=== PATIENT | male | born 1960 | race Caucasian/White ===

== ENCOUNTER → 2016-09-10 | Outpatient (CLI) | payer MEDICARE ==
[~2016-09-10] MED LIST: BACTRIM DS 8001 TAB PO; GABAPENTIN800 MG PO; LISINOPRIL 10MG10 MG PO; LISINOPRIL 20MG20 MG PO; LISINOPRIL1 POW; MEDROL 4MG. DOSE4 MG PO; NORCO 325 MG-101 TAB PO; PERCOCET 325 MG1 TA3 PO; PERCOCET 325 MG1 TA4 PO; VALIUM 10MG TAB10 MG PO
[2016-09-10 15:28] LABS: AMPHETAMINES/METAMPHETAMINES NEGATIVE ng/mL (<1000)
== END ==
LOC: LAB 13:55
PROVIDERS: Emergency Medicine
DX: Z79.899 Other long term (current) drug therapy (principal)

== ENCOUNTER 2016-10-16 06:23 | Day surgery (SDC) | payer MEDICARE ==
[~2016-10-16] VITALS: Ht 182.9 cm; Wt 72.6 kg
--- NOTE | 2016-10-16 12:10 | Operative Note ---
Procedure/Operative Record Date of Procedure: 10/16/16 Referring physician: Dr. Espinosa Pre-op diagnosis: 1. Carpal tunnel syndrome, RIGHT wrist 2. Cubital tunnel syndrome, RIGHT elbow 3. Ulnar nerve subluxation, RIGHT elbow Post-op diagnosis: 1. Carpal tunnel syndrome, RIGHT wrist 2. Cubital tunnel syndrome, RIGHT elbow 3. Ulnar nerve subluxation, RIGHT elbow Procedure performed: 1. Open carpal tunnel release, RIGHT wrist 2. Cubital tunnel release with anterior subcutaneous transposition of the ulnar nerve, RIGHT elbow Surgeon: ANTHONY VARGAS,KAVITA LAGUNAS [employer] Post Truck Driver(s): Chayo Ware Anesthesia: General Indications: Patient is a 56-year-old vvyfe-clwp-blwbyswf gentleman with paresthesias in both hands with weakness and wasting of small muscles in his RIGHT hand for about 1 year duration. Evaluation including EMG/NCV confirmed bilateral carpal tunnel syndrome and ulnar neuropathy on the RIGHT side. He failed to respond satisfactorily to conservative management. Clinically there is significant wasting and weakness of the small muscles of his RIGHT hand over both median and ulnar nerve distribution. There is also anterior subluxation of the ulnar nerve over the medial epicondyle. Therefore the surgery is indicated to preserve the remaining fibers of the median and ulnar nerves, improve his functional outcome and decrease the pain, paresthesias, weakness and to prevent further progression and complete nerve damage. Findings: The intraoperative findings showed the median nerve to be very tightly compressed and slightly hyperemic. There was mild synovitis in the carpal tunnel. There was no space-occupying lesions within the carpal tunnel. At the cubital tunnel, the ulnar nerve was tightly compressed. The nerve appeared thinned out and hyperemic in the cubital tunnel. The medial epicondyle was somewhat prominent but no osteophytes or space-occupying lesions noted. Description of procedure: On the day of the surgery the patient was met in the preoperative area. He was positively identified and the operative site was marked and initialed by me. A physical examination was performed and the chart was updated. Consent form was reviewed and signed. I again discussed the procedures, risks and benefits and alternatives with the patient. We have discussed that the goal of the surgery is to stop further damage to the median and ulnar nerves by relieving pressure on the nerves. We have discussed that return of sensation and nerve function may or may not actually happen. We have discussed nonsurgical alternatives including use of a splint, activity limitations, nonsteroidal anti-inflammatory drugs and local cortisone injections, in detail. We discussed risks of carpal tunnel and cubital tunnel release surgery- these include but are not limited to bleeding, injury to nerves, blood vessels and tendons, infection, wound dehiscence [wound coming apart], incomplete relief/continued pain, persistent numbness, palmar hypersensitivity, pillar pain, worsening of nerve damage, failure of the condition to improve, incomplete return of function, bowstringing of tendons, weakness of ladies suit operator strength, recurrence, failure of the surgery to accomplish the desired goals, stiffness of the wrist and elbow, decreased use of the hand, loss of use of the arm, loss of the hand or arm, loss of life. The possibility of complex regional pain syndrome has been discussed. Need for potential additional surgery in the future has been discussed. Possibility of blood clots causing dangerous or even fatal sequelae have been discussed. I've indicated to the patient where the proposed incisions would be made and also discussed the possibility of extending the incisions if needed to accomplish an effective release. I have diagrammed the peripheral nerve and fascicular bundles and indicated how some nerve fibers may still be healthy, others may be compromised but recoverable, and some may be permanently damaged. We have discussed how the goal of surgery is to protect the fibers which have remained healthy and hopefully reverse the symptoms of the fibers which are compromised but still recoverable. We have explained that, fibers that are permanently damaged will not recover. The patient asked appropriate questions and all have been answered by me. I believe the patient is fully informed as to the goals of surgery, the potential risks and benefits. He expressed a full understanding and wished to proceed with the proposed surgery as planned on the RIGHT side. The patient was brought to the operating room and placed supine on the operating table. The RIGHT arm was placed over a side table. All bony prominences were appropriately padded. The career technical counselor had already administered the appropriate anesthetic (general). A well-padded tourniquet cuff was placed very high on the upper arm. The RIGHT upper extremity was prepped and draped in the usual sterile fashion. A preprocedure timeout was performed as per hospital policy. The bony landmarks including the medial epicondyle and the olecranon process as well as the skin incisions were marked with a marking pen- a curved incision over the medial aspect of the elbow for the ulnar nerve decompression and 2 cm volar incision marked using the Kowalski's landmarks, just ulnar to the thenar crease for the carpal tunnel decompression. The limb was exsanguinated with Esmarch bandage and tourniquet was inflated to 250 mmHg.Please see nursing records for the total tourniquet time. We started first with the cubital tunnel decompression and anterior subcutaneous transposition of ulnar nerve. A preprocedure tmeout was performed as per the Hospital protocol. A curved skin incision was made on the medial aspect of the elbow and carried posterior to the medial epicondyle over the cubital tunnel. Using blunt dissection, branches of the medial brachial, and antebrachial cutaneous nerves were dissected and retracted out of the operative field and protected throughout the procedure. Blunt dissection was carried through the subcu tissue and the ulnar nerve was identified superior to the cubital tunnel. The nerve was first followed superiorly up to the medial intermuscular septum and the septum was released to free up the nerve at this point. The nerve was then followed distally into the cubital tunnel. The nerve was completely freed up of all surrounding soft tissues proximally and into the cubital tunnel. The cubital tunnel was then slowly released. Distally, the ulnar nerve was carefully dissected to identify the branches to the flexor carpi ulnaris muscle and the articular branches. Once these nerve branches were identified, the fascia over the flexor pronator muscle mass was incised to ensure that there was no compression of the nerve in this area. The motor branches of the ulnar nerve were carefully protected throughout this release. With the ulnar nerve freely released from soft tissue, it was brought anteriorly and the elbow was placed through a full range of motion to ensure that there was no constriction of the nerve throughout the course. A Garnett drain was placed over the nerve to hold it in place and to ensure that there is no constriction of the nerve throughout the range of motion, even beyond the plane of the dissection. The elbow was put through full range of motion. No compression points or acute angles were identified. A fascial sling was then fashioned from the fasciae overlying the muscles and sutured to the anterior skin flap, using interrupted 2-0 Vicryl sutures. Again, the elbow was put through full motion and no compression points were identified We then turned our attention to the carpal tunnel release. Kowalski's landmarks were utilized and an incision made parallel and just ulnar to the thenar crease with a #15 blade. Blunt dissection was carried through the subcutaneous tissue down to the palmar fascia. The palmar fascia was incised with the knife to reveal the transverse carpal ligament. The transverse carpal ligament was adequately exposed and then incised with the knife just enough to expose the median nerve. We then protected the median nerve with a freer elevator and extended the incision on the ulnar aspect of the nerve using the knife. We then completed the division of the transverse carpal ligament proximally using a pair of tenotomy scissors. The transverse carpal ligament was contiguous with the antebrachial fascia and skin was lifted up with a retractor, and the antebrachial fascia visualized and incised. A complete release proximally was confirmed by easily obtaining side to side movement of the proximal carpal tunnel segments. Attention was then directed distally. Again, we incised the distal aspect of the transverse carpal ligament using the tenotomy scissors. Fat demarcating the end of the carpal tunnel was identified and we ensured that the motor branch was not endangered by any anatomic variation. We also then confirmed that we had free side to side movement of the entire transverse carpal tunnel ligament segments. Inspection of the carpal tunnel contents showed slight hyperemic changes in the nerve. There was mild synovitis but no space-occupying lesion within the transverse carpal canal. After completing the carpal tunnel release, the tourniquet was deflated and hemostasis was obtained over both the wounds with the bipolar diathermy. We then irrigated both the wounds with normal saline. The wrist wound skin was closed with a running 4-0 nylon suture. 10 mL of 0.5 percent Marcaine injected into the soft tissues around the incision for postoperative analgesia. The wound was closed in layers with 2-0 Vicryl subcutaneous tissue and 4-0 Ethilon interrupted sutures to the skin. 20 mL of 0.5 percent Marcaine injected into the soft tissues and skin around the elbow incision. Sterile dressings and a long-arm Ortho-Glass splint was applied. The tourniquet cuff was removed from the arm. The patient was reversed from the anesthetic and transferred onto the [facility] and transported to the postoperative recovery area in stable condition. The swab, instrument and needle counts were correct according to the scrub team at the end of the procedure. He tolerated the procedure well and there were no immediate complications. Patient was discharged home after fully recovering from the anesthetic with appropriate written instructions. Follow-up in my office in 10 days time. EBL (ml): 20 Implant: None Complications: None Specimens: None
[2016-10-16 12:45] VITALS: BP 144/77
== END 2016-10-16 10:30 | disposition home or self-care (01) ==
LOC: SDC 06:23
PROVIDERS: Orthopaedic Surgery
PROC: 01N50ZZ Release Median Nerve, Open Approach (ICD-10-PCS; principal; 2016-10-16 07:30)
PROC: 01N40ZZ Release Ulnar Nerve, Open Approach (ICD-10-PCS; 2016-10-16 07:30)
DX: G56.01 Carpal tunnel syndrome, right upper limb (principal); G56.21 Lesion of ulnar nerve, right upper limb; S63.071A Subluxation of distal end of right ulna, initial encounter

== ENCOUNTER → 2016-12-19 | Outpatient (CLI) | payer MEDICARE ==
--- NOTE | 2016-12-19 17:05 | RADIOLOGY REPORT PS360 ---
History and Indications: Hypertension, tobacco use, family history and shortness of breath. Procedure: Patient received a 0.4 mg of Lexiscan, resting heart rate was 76 bpm resting blood pressure 136/76, with Lexiscan maximum heart rate achieved was 93 bpm which is less than 85% of the maximum predicted heart rate and a blood pressure was 125/70. With Lexiscan patient complained of shortness of breath. Electrocardiogram: Resting electrocardiogram showed sinus rhythm, rightward axis, with intravenous Lexiscan there is less than 1.[address] segment depression noted from the baseline EKG. The EKG portion of the Lexiscan is nondiagnostic. Cardiac stress and resting SPECT images: Cardiac stress and the suspect images were obtained using technetium 99 Myoview 10.3 mCi at rest and 31.4 mCi at stress, gated SPECT further analysis of segmental wall motion and calculation of the ejection fraction also done. Cardiac stress and the suspect images show a fixed defect in the inferior wall with normal contractility in the gated SPECT is likely secondary to soft tissue attenuation from the diaphragm, no reversible ischemia seen. Computer derived ejection fraction is 46% with no obvious regional wall motion abnormality, right ventricle is moderately enlarged with normal contractility. Conclusion: 1. The EKG portion of the Lexiscan is nondiagnostic. 2. No obvious scintigraphic evidence of reversible ischemia seen. Computer derived ejection fraction is 46% with no obvious regional wall motion abnormality, right ventricle is moderately enlarged with normal contractility.
--- NOTE | 2016-12-19 20:49 | RADIOLOGY REPORT PS360 ---
PROCEDURE: 2-D M-mode and color Doppler study INDICATIONS FOR THE TEST: Chest pain COPD Heart Murmur Tobacco Smoking Palpitations Fatigue Syncope Edema Hypertension Diabetes Mellitus Rheumatic Fever SOB [place] Obesity Hyperlipidemia Family History HD Additional History BUBBLE STUDY ORDERED, CVA PATIENT INFORMATION HEIGHT: 70 WEIGHT:168 GENDER: Male B/P: 2-D/M-MODE INTERPRETATION: 2-D MEASUREMENTS OBSERVED VALUES IN CMS Aortic Root 3.8 Aortic Cusp Separation 2.1 Left Atrial Dimensions (LAD) 4.5 2D 1. The left atrium is mildly enlarged, left ventricle is normal size, there is mild concentric left ventricular hypertrophy present, visually estimated ejection fraction approximately 50% with no obvious regional wall motion abnormality, endocardial surfaces are somewhat poorly visualized. 2. The right atrium is normal size, right ventricle is mildly enlarged with normal contractility. 3. The intra-atrial septum is intact, agitated saline contrast study is to identify intracardiac shunt. 4. The aortic valve is minimally thickened and calcified, there is no aortic stenosis. 5. The mitral valve has mild mitral calcification there is no mitral stenosis. 6. The tricuspid valve is structurally normal. 7. The pulmonic valve is not well visualized. 8. No significant pericardial effusion noted. DOPPLER INTERROGATION: Doppler interrogation of the aortic mitral and tricuspid valvular presence of mild aortic, mitral and tricuspid regurgitation, tricuspid regurgitant jet velocity insufficient for calculation of the right ventricular systolic pressure. Grade 1 diastolic dysfunction seen without tissue Doppler evidence of raised left atrial pressure. CONCLUSION: 1. Mildly enlarged left atrium, normal left ventricular size, mild concentric left ventricular hypertrophy, visually estimated ejection fraction 50% with no obvious regional wall motion abnormality, grade 1 diastolic dysfunction seen without tissue Doppler evidence of raised left atrial pressure. 2. Agitated saline contrast study fails to identify intracardiac shunt. 3. Mildly enlarged right ventricle with normal contractility. 4. Mild mitral and tricuspid regurgitation. 5. No significant pericardial effusion noted.
== END ==
LOC: RAD 06:58
DX: I63.9 Cerebral infarction, unspecified (principal); I10 Essential (primary) hypertension; E78.5 Hyperlipidemia, unspecified; Z72.0 Tobacco use; R06.02 Shortness of breath
CPT/HCPCS: A9502; J2785

== ENCOUNTER 2017-01-14 19:16 | Emergency (ER) | payer MEDICARE ==
[~2017-01-14] VITALS: Ht 182.9 cm; Wt 74.4 kg
[2017-01-14] MEDS ORDERED: ATORVASTATIN CA40 MG PO (19:28)
[2017-01-14] MEDS ORDERED: ASPIRIN 325MG325 MG PO (19:28)
[2017-01-14] MEDS ORDERED: AMITRIPTYLINE H25 MG PO (19:28)
--- OUTSIDE RECORDS SUMMARY | 2017-01-14 19:30 | External Medical Summary Rpt ---
Author Author , Organization [employer] Address Unknown Phone Unavailable Care Team Providers Care Ion Exchange Operator Name Role Phone VICKI ESPINAL MD, PSC, Unavailable Unavailable VICKI ESPINAL MD, PSC DE LEON ALL, DE LEON ALL Unavailable Unavailable [facility] Unavailable Unavailable AND REHA, [facility] Unavailable Unavailable CLIN[facility], [facility], [facility], Unavailable Unavailable [facility] ANABELA, HARNED Unavailable Unavailable ANABELA WARE ANT, WARE Unavailable Unavailable ANT HEILIG ANABEAL, HEILIG Unavailable Unavailable ANABELA RONNA II SAUL, ORNNA Unavailable Unavailable II SAUL LUIS ANGEL READ, Unavailable Unavailable LUIS ANGEL READ JULIA CRI, JULIA CRI Unavailable Unavailable [facility], Unavailable Unavailable [facility] Unavailable Unavailable [facility], [id number], Unavailable Unavailable [id number] Unavailable Unavailable [id number], Unavailable Unavailable [facility] LENORA MAT, LENORA MAT Unavailable Unavailable [facility] Unavailable Unavailable DINESH ALONZO, Unavailable Unavailable DINESH ALONZO Purpose Continuity of Care Document - 10-22-2011 through 2016 Problems Code Diagnosis DOS Provider Status E78.5 Hyperlipide 11-08-2016 samson, unspecified F17.210 Nicotine 11-08-2016 dependence, cigarettes, uncomplicat ed 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 G47.00 Insomnia, 11-08-2016 unspecified G56.00 Carpal 11-08-2016 tunnel syndrome, unspecified upper limb G81.91 Hemiplegia, 11-08-2016 unspecified affecting right dominant side G89.29 Other 11-08-2016 chronic pain I10 Essential 11-08-2016 (primary) hypertensio n 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 I63.9 Cerebral 11-08-2016 infarction, unspecified M54.5 Low back 11-08-2016 pain M54.9 Dorsalgia, 11-08-2016 unspecified R47.1 Dysarthria 11-08-2016 and anarthria Z79.82 watermelon inspector 11-08-2016 (current) use of aspirin Z92.82 Status post 11-08-2016 administrat ion of tPA (rtPA) in a different facility within the last 24 hours prior to admission to current facility [id number] SPONDYLOSIS 06-27-2015 VICKI ESPINAL, W/O , PSC MYELOPATH/R ADICULOPATH Y LUMB RGN 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 BROWN MD, 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 [id number] OT 06-27-2015 MIRIAM BROWN MD, PSC RAL DISC DEGEN LUMBAR REGION 7213 LUMBOSACRAL 01-20-2015 DINESH ALONZO SPONDYLOSIS WITHOUT MYELOPATHY 18159 DISPLCMT 01-20-2015 DINESH Meneses 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 14738 DEGEN 01-20-2015 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 7242 LUMBAGO 01-20-2015 DINESH ALONOZ 34832 SPASM OF 12-16-2014 [place] [facility], [facility]SC 7821 RASH AND 06-01-2014 [place] OTHER [facility]ICAL NONSPECIFIC CLINIC, [facility] SKIN ERUPTION 77949 UNSPECIFIED 10-09-2013 [facility] REHA OTHER SPECIFIED SITES 7244 THORACIC/CATHERINE 10-09-2013 [facility] NEURITIS/RA DICULITIS UNSPEC V0481 NEED 04-28-2013 [facility] C VACCINATION &INOCULATIO N FLU 3670 HYPERMETROP 05-22-2012 [facility] 57141 REGULAR 05-22-2012 [facility] 3674 PRESBYOPIA 05-22-2012 [facility] 01610 OTHER 05-22-2012 [facility] OPACITIES 4019 UNSPECIFIED 11-30-2011 [facility] ESSENTIAL EAST HYPERTENSIO N 7295 PAIN IN 11-30-2011 [facility] SOFT EAST TISSUES OF LIMB 7820 DISTURBANCE 11-30-2011 [facility] SENSATION 7840 HEADACHE 11-30-2011 [facility] V5869 LONG-TERM 11-30-2011 [facility] (CURRENT) [facility] USE OF OTHER MEDICATIONS 7245 UNSPECIFIED 10-25-2011 [facility] Immunization Name Date Route CVX Reacti Commen Provid Is Given on t er Refuse d IIV3 RITE No VACC 2013 AID PRESER PHARM VATIVE #3943 FREE 0.5 ML DOSAGE IM USE Procedures Procedure DOS Code [place] [address] DINESH DE LEON ALL SPINAL 5 S. [place] CANAL LUMBAR W/O CONTRAST MATERIAL INJECTION J2795 [address] ROPIVACAI NE HYDROCHLO RIDE 1 MG INJECTION J1030 [address] METHYLPRE DNISOLONE ACETATE 40 MG NJX 42964 ABEBA FRIEND II DX/THER 4 LTH SLEEP SAUL AGT PVRT AND REHA FACET JT LMBR/SAC 3+ LEVEL NJX 76705 ABEBA FRIEND II DX/THER 4 LTH SLEEP SAUL AGT PVRT AND REHA FACET JT LMBR/SAC 1 LEVEL NJX 59118 ABEBA FRIEND II DX/THER 4 LTH SLEEP SAUL AGT PVRT AND REHA FACET JT LMBR/SAC 2ND LEVEL MRI 89621 [facility] SPINAL 3 NAPIER NAPIER CANAL MEM MEM LUMBAR W/O CONTRAST MATERIAL ADMINISTR G0008 [facility] AT[facility] OF 3 PHARM PHARM INFLUENZA #3943 #3943 VIRUS VACCINE IIV3 VACC 82167 [facility] 3 PHARM PHARM PRESERVAT #3943 #3943 LUIS FREE 0.5 ML DOSAGE IM USE LUMB-SACR L0637 [facility] OR[facility]OS 3 HOME [facility] CARE SAG-COR INC INC CNTRL RIGD A&P PREFAB MODERATE 69495 ABEBA FRIEND II SEDATJ 2 LTH SLEEP SAUL SAME AND REHA PHYS/QHP 5/>YRS INIT 30 MIN NJX 82229 [facility] RONNA II DX/THER 2 LTH SLEEP SAUL SBST AND REHA EPIDURAL/ SUBARACH LUMBAR/SA CRAL FLUOR 92461 [facility] RONNA II NEEDLE/CA 2 LTH SLEEP SAUL TH AND REHA SPINE/PAR ASPINAL DX/THER ADDON FLUOR 57746 [facility] RONNA II NEEDLE/CA 2 LTH SLEEP SAUL TH AND REHA SPINE/PAR ASPINAL DX/THER ADDON NJX 65005 [facility] RONNA II DX/THER 2 LTH SLEEP SAUL SBST AND REHA EPIDURAL/ SUBARACH LUMBAR/SA CRAL MODERATE 94159 [place] RNONA II SEDATJ 2 LTH SLEEP SAUL SAME AND REHA PHYS/QHP 5/>YRS INIT 30 MIN DRUG SCR G0434 NEW [facility] NOT 2 [place] ANABELA CHROMATOG CLINIC RAPHIC; PSC ANY NUMBER PT ENC RADEX 19022 [facility] SPINE 2 LT DI JACEK LUMBOSACR ORTHOPAE AL 2/3 VIEWS RADEX 96698 [facility] SPINE 2 [place] LUMBOSACR CLINIC AL ONLY PSC BENDING 2/3 VIEWS Encounters Encounter Start End Date Code Location Performer Type Date OFFICE 10129 VICKI [facility] 5 5 MD KYLIE, T 45 [facility] CRITICAL MICHAEL & ACCESS 5 5 [facility] OFFICE 16293 [facility] T VISIT CLINIC, 15 [facility], [place] 5 5 MEDICAL [facility], [place] 4 4 [facility], [facility] OFFICE [facility] T VISIT CLINIC, 15 [facility] CLINIC, [place] 4 4 [facility] 33495 [facility] 4 MEDICAL T NEW 45 CLINIC, MINUTES [facility] ST IGNACIO - 4 4 EAST OUTPATIEN T OFFICE 57172 ABEBA FRIEND II OUTPATIEN 4 4 LTH SLEEP SAUL T VISIT AND REHA 15 MINUTES OFFICE 71848 ABEBA FRIEND II OUTPATIEN 3 3 LTH SLEEP SAUL T VISIT AND REHA 15 MINUTES CRITICAL MICHAEL & ACCESS 3 3 [facility] OFFICE 62802 RENÉDKChristopher FRIEND II OUTPATIEN 3 3 LTH SLEEP SAUL T VISIT AND REHA 25 MINUTES OFFICE 69777 ABEBA FRIEND II OUTPATIEN 3 3 LTH SLEEP SAUL T VISIT AND REHA 25 MINUTES OFFICE 22582 ABEBA FRIEND II OUTPATIEN 3 3 LTH SLEEP SAUL T VISIT AND REHA 25 MINUTES OFFICE 81289 ADRIANAChristopher FRIEND II OUTPATIEN 3 3 LTH SLEEP SAUL T VISIT AND REHA 15 MINUTES OFFICE 22217 RENÉDKChristopher FRIEND II OUTPATIEN 3 3 LTH SLEEP SAUL T VISIT AND REHA 15 MINUTES OFFICE 41981 RENÉDKChristopher FRIEND II OUTPATIEN 3 3 LTH SLEEP SAUL T VISIT AND REHA 15 MINUTES OFFICE 40114 ADRIANAChristopher FRIEND II OUTPATIEN 2 2 LTH SLEEP SAUL T VISIT AND REHA 15 MINUTES OFFICE 18200 [facility] 2 2 CTR ANT T VISIT [facility] 15 MINUTES OFFICE 33427 ABEBA FRIEND II OUTPATIEN 2 2 LTH SLEEP SAUL T VISIT AND REHA 10 MINUTES OFFICE 88668 ABEBA RONNA II OUTPATIEN 2 2 LTH SLEEP SAUL T VISIT AND REHA 15 MINUTES OFFICE 47192 [facility] OUTPATIEN 2 2 E[facility] T NEW 30 MINUTES HOSPITAL [facility] - 2 2 E[facility] OUTPATIEN T OFFICE 85872 [facility] OUT[facility]IEN 2 2 [place] ANABELA T NEW 45 CLINIC MINUTES PSC OFFICE 06751 [facility] [facility] OUTPATIEN 2 2 [place] ANABELA T NEW 45 [facility] MINUTES OFFICE 28517 ABEBA PAVON OUTPATIEN 2 2 [facility] DI JACEK T 45 [facility] MINUTES OFFICE 20632 [place] OUTPATIEN 2 2 [place] T VISIT CLINIC 10 [facility] MINUTES
--- OUTSIDE RECORDS SUMMARY | 2017-01-14 19:30 | External Medical Summary Rpt ---
Author Author , Organization [employer] Address Unknown Phone Unavailable Care Team Providers Care Senior Test Analyst Name Role Phone VICKI ESPINAL MD, PSC, Unavailable Unavailable VICKI ESPINAL MD, PSC DE LEON ALL, DE LEON ALL Unavailable Unavailable [facility] Un[facility]available Unavailable AND REHA, [facility] Unavailable Unavailable CLINIC, PSC, [facility], [facility], Unavailable Unavailable [facility] ANABELA, HARNED Unavailable Unavailable ANABELA WARE ANT, WARE Unavailable Unavailable ANT HEILIG ANABELA, HEILIG Unavailable Unavailable ANABELA RONNA II SAUL, RONNA Unavailable Unavailable II SAUL LUIS ANGEL READ, Unavailable Unavailable LUIS ANGEL READ JULIA CRI, JULIA CRI Unavailable Unavailable [facility], Unavailable Unavailable [facility] Unavailable [facility]available [facility], [id number] Unavailable Unavailable [id number], Unavailable Unavailable [facility], Unavailable Unavailable [facility] LENORA MAT, LENORA MAT Unavailable Unavailable [place] [place], [facility] Unavailable Unavailable DINESH ALONZO, Unavailable Unavailable DINESH [...] 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 I63.9 Cerebral 11-08-2016 infarction, unspecified M54.5 Low back 11-08-2016 pain M54.9 Dorsalgia, 11-08-2016 unspecified R47.1 Dysarthria 11-08-2016 and anarthria 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 Z92.82 Status post 11-08-2016 administrat ion of tPA (rtPA) in a different facility within the last 24 hours prior to admission to current facility [id number] SPONDYLOSIS 06-27-2015 VICKI ESPINAL, W/O , PSC MYELOPATH/R ADICULOPATH Y LUMB RGN 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 BROWN MD, 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 M5136 OT 06-27-2015 MIRIAM BROWN MD, PSC RAL DISC DEGEN LUMBAR REGION 7213 LUMBOSACRAL 01-20-2015 DINESH ALONZO SPONDYLOSIS WITHOUT MYELOPATHY 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 7242 LUMBAGO 01-20-2015 DINESH ALONZO 99986 SPASM OF 12-16-2014 [place], PSC 7821 RASH AND 06-01-2014 [place] OTHER MEDICAL NONSPECIFIC CLINIC, [facility] SKIN ERUPTION 65260 UNSPECIFIED 10-09-2013 [facility] AND ARTHROPATHY REHA OTHER SPECIFIED SITES 7244 THORACIC/CATHERINE 10-09-2013 [facility] NEURITIS/RA DICULITIS UNSPEC V0481 NEED 04-28-2013 [facility] C VACCINATION &INOCULATIO N FLU 3670 HYPERMETROP 05-22-2012 [facility] 31595 REGULAR 05-22-2012 [facility] 3674 PRESBYOPIA 05-22-2012 [facility] 68848 OTHER 05-22-2012 [facility] OPACITIES 4019 UNSPECIFIED 11-30-2011 [facility]SSENTIAL EAST HYPERTENSIO N 7295 PAIN IN 11-30-2011 [facility] SOFT EAST TISSUES OF LIMB 7820 DISTURBANCE 11-30-2011 [facility] SENSATION 7840 HEADACHE 11-30-2011 [facility] V5869 LONG-TERM 11-30-2011 [facility] (CURRENT) [facility] USE OF OTHER MEDICATIONS 7245 UNSPECIFIED 10-25-2011 [facility] Immunization Name Date Route CVX Reacti Commen Provid Is Given on t er Refuse d IIV3 RITE No VACC 2013 AID PRESER PHARM VATIVE #3943 FREE 0.5 ML DOSAGE IM USE Procedures Procedure DOS Code [place] Per[place] [address] DINESH DE LEON ALL SPINAL 5 S. [place] CANAL LUMBAR W/O CONTRAST MATERIAL INJECTION J2795 [address] ROPIVACAI NE HYDROCHLO RIDE 1 MG INJECTION J1030 [address] METHYLPRE DNISOLONE ACETATE 40 [place] NJX 38911 ABEBA FRIEND II DX/THER 4 LTH SLEEP SAUL AGT PVRT AND REHA FACET JT LMBR/SAC 3+ LEVEL NJX 36352 ABEBA FRIEND II DX/THER 4 LTH SLEEP SAUL AGT PVRT AND REHA FACET JT LMBR/SAC 1 LEVEL NJX 51819 ABEBA FRIEND II DX/THER 4 LTH SLEEP SAUL AGT PVRT AND REHA FACET JT LMBR/SAC 2ND LEVEL MRI 11519 [facility] MIC[facility] & SPINAL 3 NAPIER NAPIER CANAL MEM MEM LUMBAR W/O CONTRAST MATERIAL ADMINISTR G0008 [facility]ARM PH[facility] INFLUEN[facility] #3943 #3943 VIRUS VACCINE IIV3 VACC 47191 [facility] PHARM PRESERVAT #3943 #3943 LUIS FREE 0.5 ML DOSAGE IM USE LUMB-SACR L0637 [facility]OS 3 HOME ALF CARE [employer] INC CNTRL RIGD A&P PREFAB MODERATE 81220 ABEBA FRIEND II SEDATJ 2 LTH SLEEP SAUL SAME AND REHA PHYS/QHP 5/>YRS INIT 30 MIN NJX 79454 [facility] RONNA II DX/THER 2 LTH SLEEP SAUL SBST AND REHA EPIDURAL/ SUBARACH LUMBAR/SA CRAL FLUOR 97520 [facility] RONNA II NEEDLE/CA 2 LTH SLEEP SAUL TH AND REHA SPINE/PAR ASPINAL DX/THER ADDON FLUOR 88786 [facility] RONNA II NEEDLE/CA 2 LTH SLEEP SAUL TH AND REHA SPINE/PAR ASPINAL DX/THER ADDON NJX 24785 [facility] ORNNA II DX/THER 2 LTH SLEEP SAUL SBST AND REHA EPIDURAL/ SUBARACH LUMBAR/SA CRAL MODERATE 32584 [place] RONNA II SEDATJ 2 LTH SLEEP SAUL SAME AND REHA PHYS/QHP 5/>YRS INIT 30 MIN DRUG SCR G0434 [facility] [place] NOT 2 [place] [facility] RAPHIC; PSC ANY NUMBER PT ENC RADEX 03843 [facility] SPINE 2 LT DI JACEK LUMBOSACR ORTHOPAE AL 2/3 VIEWS RADEX 85408 [facility] SPINE 2 [place] LUMBOSACR CLINIC AL ONLY PSC BENDING 2/3 VIEWS Encounters Encounter Start End Date Code Location Performer Type Date OFFICE 20990 VICKI DUMONT [facility] 5 5 MD KYLIE, T 45 [facility] CRITICAL MICHAEL & ACCESS 5 5 [facility] OFFICE 35249 [facility] T VISIT CLINIC, 15 [facility] CLINIC, [place] 5 5 MEDICAL [facility], [facility] CLINIC, [place] 4 4 [facility], [facility] OFFICE 91686 [facility] 4 MEDICAL T VISIT CLINIC, 15 [facility] CLINIC, [place] [address] [facility], [facility] OFFICE 86075 [facility] 4 4 MEDICAL T NEW 45 CLINIC, MINUTES [facility] ST IGNACIO - 4 4 EAST OUTPATIEN T OFFICE 06755 ABEBA FRIEND II OUTPATIEN 4 4 LTH SLEEP SAUL T VISIT AND REHA 15 MINUTES OFFICE 97659 ABEBA FRIEND II OUTPATIEN 3 3 LTH SLEEP SAUL T VISIT AND REHA 15 MINUTES CRITICAL MICHAEL & ACCESS 3 3 [facility] OFFICE 09584 RENÉDKChristopher FRIEND II OUTPATIEN 3 3 LTH SLEEP SAUL T VISIT AND REHA 25 MINUTES OFFICE 64284 ABEBA FRIEND II OUTPATIEN 3 3 LTH SLEEP SAUL T VISIT AND REHA 25 MINUTES OFFICE 90645 ABEBA FRIEND II OUTPATIEN 3 3 LTH SLEEP SAUL T VISIT AND REHA 25 MINUTES OFFICE 21446 ADRIANAChristopher FRIEND II OUTPATIEN 3 3 LTH SLEEP SAUL T VISIT AND REHA 15 MINUTES OFFICE 42995 RENÉDKChristopher FRIEND II OUTPATIEN 3 3 LTH SLEEP SAUL T VISIT AND REHA 15 MINUTES OFFICE 15235 RENÉDKChristopher FRIEND II OUTPATIEN 3 3 LTH SLEEP SAUL T VISIT AND REHA 15 MINUTES OFFICE 70852 ADRIANAChristopher FRIEND II OUTPATIEN 2 2 LTH SLEEP SAUL T VISIT AND REHA 15 MINUTES OFFICE 78381 [facility] 2 2 CTR ANT T VISIT [facility] 15 MINUTES OFFICE 88572 ABEBA FRIEND II OUTPATIEN 2 2 LTH SLEEP SAUL T VISIT AND REHA 10 MINUTES OFFICE 41790 ABEBA RONNA II OUTPATIEN 2 2 LTH SLEEP SAUL T VISIT AND REHA 15 MINUTES OFFICE 10706 [facility] OUTPATIEN 2 2 EAST T NEW 30 MINUTES HOSPITAL [facility] - 2 2 EAST OUTPATIEN T OFFICE 70834 [facility] OUTPATIEN 2 2 [place] ANABELA T NEW 45 CLINIC MINUTES PSC OFFICE 16550 [place] HERRER[facility] OUTPATIEN 2 2 [place] ANABELA T NEW 45 [facility] MINUTES OFFICE 52226 ABEBA PAVON OUTPATIEN 2 2 [facility] DI JACEK T 45 [facility] MINUTES OFFICE 74097 [place] REGAN OUTPATIEN 2 2 [place] T VISIT CLINIC 10 [facility] MINUTES
--- OUTSIDE RECORDS SUMMARY | 2017-01-14 19:31 | External Medical Summary Rpt ---
Author Author , Organization [employer] Address Unknown Phone Unavailable Care Team Providers Care Pattern Chain Maker Supervisor Name Role Phone VICKI ESPINAL MD, PSC, Unavailable Unavailable VICKI ESPINAL MD, PSC DE LEON ALL, DE LEON ALL Unavailable Unavailable [facility] Unavailable Unavailable [facility], [facility] Unavailable Unavailable AND REHA, [facility] REHA [facility] Unavailable [...] READ JULIA CRI, JULIA CRI Unavailable Unavailable [facility] Unavailable Unavailable INC, [facility], Unavailable Unavailable [facility], Unavailable Unavailable [facility] Unavailable Unavailable [facility] LENORA MAT, LENORA MAT Unavailable Unavailable [place] [place], [facility] Unavailable Unavailable DINESH ALONZO, Unavailable Unavailable DINESH ALONZO CASEY, [place] PEÑA Unavailable Unavailable Purpose Continuity of Care Document - 10-22-2011 through 2016 Problems Code Diagnosis DOS Provider Status [id number] SPONDYLOSIS 06-27-2015 VICKI ESPINAL W/O , PSC MYELOPATH/R ADICULOPATH Y LUMB RGN M5126 [facility] 06-27-2015 MIRIAM BROWN MD, 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 M5136 [facility] 06-27-2015 MIRIAM BROWN MD, PSC RAL DISC DEGEN LUMBAR REGION 7213 LUMBOSACRAL 01-20-2015 DINESH ALONZO SPONDYLOSIS WITHOUT MYELOPATHY 36417 DISPLCMT 01-20-2015 DINESH Meneses 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 64412 DEGEN 01-20-2015 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 7242 LUMBAGO 01-20-2015 DINESH ALONZO 04356 SPASM OF 12-16-2014 [facility], PSC 7821 RASH AND 06-01-2014 [place] OTHER [facility]ICAL NONSPECIFIC CLINIC, [facility] SKIN ERUPTION 17695 UNSPECIFIED 10-09-2013 [facility] SLEEP AND ARTHROPATHY REHA OTHER SPECIFIED SITES 7244 THORACIC/CATHERINE 10-09-2013 [facility] NEURITIS/RA DICULITIS UNSPEC V0481 NEED 04-28-2013 [facility] C VACCINATION &INOCULATIO N FLU 3670 HYPERMETROP 05-22-2012 [facility] 56838 REGULAR 05-22-2012 [facility] 3674 PRESBYOPIA 05-22-2012 [facility] 92739 OTHER 05-22-2012 [facility] V[facility] OPACITIES 4019 UNSPECIFIED 11-30-2011 [facility] HYPERTENSIO N 7295 PAIN IN 11-30-2011 [facility] SOFT [facility] TISSUES OF LIMB 7820 DISTURBANCE 11-30-2011 [facility] SKIN [facility] SENSATION 7840 HEADACHE 11-30-2011 [facility] V5869 LONG-TERM 11-30-2011 [facility] (CURRENT) [facility] USE OF OTHER MEDICATIONS 7245 UNSPECIFIED 10-25-2011 [facility] Immunization Name Date Route CVX Reacti Commen Provid Is Given on t er Refuse d IIV3 RITE No VACC 2013 AID PRESER PHARM VATIVE #3943 FREE 0.5 ML DOSAGE IM USE Procedures Procedure DOS Code Location Performer Comment MRI 65851 DINESH DE LEON ALL SPINAL 5 S. [place] CANAL LUMBAR W/O CONTRAST MATERIAL INJECTION J1030 [address] METHYLPRE DNISOLONE ACETATE 40 MG NJX 69878 [facility] DX/THER [address] [place] [address] AGT PVRT FACET JT LMBR/SAC 3+ LEVEL INJECTION J2795 [address] ROPIVACAI NE HYDROCHLO RIDE 1 MG NJX 73707 [facility] DX/THER [address] [place] [address] AGT PVRT FACET JT LMBR/SAC 1 LEVEL NJX 03989 [facility] DX/THER 4 EAST EAST AGT PVRT FACET JT LMBR/SAC 2ND LEVEL MRI 38285 DINESH ALONZO CASEY SPINAL 3 S. [place] CANAL LUMBAR W/O CONTRAST MATERIAL IIV3 VACC 19750 [facility] PHARM PRESERVAT #3943 #3943 LUIS FREE 0.5 ML DOSAGE IM USE ADMINISTR G0008 [facility] PHARM PHARM INFLUENZA #3943 #3943 VIRUS VACCINE LUMB-SACR L0637 [facility]OS 3 HOME CHCF CARE [employer] INC CNTRL RIGD A&P PREFAB NJX 55880 [facility] RONNA II DX/THER 2 LTH SLEEP SAUL SBST AND REHA EPIDURAL/ SUBARACH LUMBAR/SA CRAL MODERATE 34948 [facility] RONNA II SEDATJ 2 LTH SLEEP SAUL SAME AND REHA PHYS/QHP 5/>YRS INIT 30 MIN FLUOR 67790 [facility] RONNA II NEEDLE/CA 2 LTH SLEEP SAUL TH AND REHA SPINE/PAR ASPINAL DX/THER ADDON MODERATE 50212 [facility] RONNA II SEDATJ 2 LTH SLEEP SAUL SAME AND REHA PHYS/QHP 5/>YRS INIT 30 MIN FLUOR 72049 [facility] RONNA II NEEDLE/CA 2 LTH SLEEP SAUL TH AND REHA SPINE/PAR ASPINAL DX/THER ADDON NJX 87232 [facility] RONNA II DX/THER 2 LTH SLEEP SAUL SBST AND REHA EPIDURAL/ SUBARACH LUMBAR/SA CRAL DRUG SCR G0434 [place] NOT 2 [place] [facility] RAPHIC; PSC ANY NUMBER PT ENC RADEX 42611 [facility] K[facility]AR[place] SPINE 2 LTH DI JACEK LUMBOSACR ORTHOPAE AL 2/3 VIEWS RADEX 89406 [place] SPINE 2 [place] LUMBOSACR CLINIC AL ONLY PSC BENDING 2/3 VIEWS Encounters Encounter Start End Date Code Location Performer Type Date OFFICE 57958 VICKI DUMONT [facility] OUTPATIEN 5 5 MD KYLIE, T NEW 45 [facility] MINUTES CRITICAL MICHAEL & ACCESS 5 5 [facility] MEM OFFICE 42287 [facility] OUTPATIEN 5 5 MEDICAL T VISIT CLINIC, 15 PSC MINUTES CLINIC, [place] [facility] 5 5 [facility] OFFICE 20093 [facility] OUTPATIEN 4 4 MEDICAL T VISIT CLINIC, 15 [facility] MINUTES CLINIC, [place] [facility] 4 4 [facility] CLINIC, [place] [facility] 4 4 [facility] OFFICE 31386 [facility] OUTPATIEN 4 4 MEDICAL T NEW 45 CLINIC, MINUTES [facility] - 4 4 [facility] OUTPATIEN T OFFICE 62731 ABEBA FRIEND II OUTPATIEN 4 4 LT SLEEP SAUL T VISIT AND REHA 15 MINUTES OFFICE 28382 ABEBA FRIEND II OUTPATIEN 3 3 LT SLEEP SAUL T VISIT AND REHA 15 MINUTES [facility] MICHAEL & ACCESS 3 3 [facility] MEM OFFICE 18589 ABEBA FRIEND II OUTPATIEN 3 3 LT SLEEP SAUL T VISIT AND REHA 25 MINUTES OFFICE 70462 ADRIANAA RONNA II OUTPATIEN 3 3 LTH SLEEP SAUL T VISIT AND REHA 25 MINUTES OFFICE 10483 ADRIANAA RONNA II OUTPATIEN 3 3 LTH SLEEP SAUL T VISIT AND REHA 25 MINUTES OFFICE 95071 ADRIANAA RONNA II OUTPATIEN 3 3 LTH SLEEP SAUL T VISIT AND REHA 15 MINUTES OFFICE 62918 ABEBA FRIEND II OUTPATIEN 3 3 LTH SLEEP SAUL T VISIT AND REHA 15 MINUTES OFFICE 49202 [facility] RONNA II OUTPATIEN 3 3 LTH SLEEP SAUL T VISIT AND REHA 15 MINUTES OFFICE 40027 ABEBA RONNA II OUTPATIEN 2 2 LTH SLEEP SAUL T VISIT AND REHA 15 MINUTES OFFICE 44160 [facility] 2 2 CTR ANT T VISIT [facility] 15 MINUTES OFFICE 96570 ABEBA FRIEND II OUTPATIEN 2 2 LTH SLEEP SAUL T VISIT AND REHA 10 MINUTES OFFICE 49398 ABEBA RONNA II OUTPATIEN 2 2 LT SLEEP SAUL T VISIT AND REHA 15 MINUTES OFFICE 30157 [facility] OUTPATIEN 2 2 EAST T NEW 30 MINUTES [facility] - 2 2 [facility] OUTPATIEN T OFFICE 70117 [place] OUTPATIEN 2 2 [place] ANABELA T NEW 45 CLINIC MINUTES PSC OFFICE 90082 [place] HERR[place] OUTPATIEN 2 2 [place] ANABELA T NEW 45 PLL[facility] MINUTES OFFICE 21728 ABEBA PAVON OUTPATIEN 2 2 [facility] DI JACEK T NEW 45 [facility] MINUTES OFFICE 56452 [place] REGAN OUTPATIEN 2 2 [place] T VISIT CLINIC 10 PSC MINUTES
--- OUTSIDE RECORDS SUMMARY | 2017-01-14 19:31 | External Medical Summary Rpt ---
Author Author , Organization [employer] Address Unknown Phone Unavailable Purpose Continuity of Care Document - 03-29-2016 through 2016 Immunization Name Date Route CVX Reacti Commen Provid Is Given on t er Refuse d PPV23 [place] [address] No 2016 ical Inform ation - Source Unspec ified
--- OUTSIDE RECORDS SUMMARY | 2017-01-14 19:31 | External Medical Summary Rpt ---
Author Author , Organization [employer] Address Unknown Phone Unavailable Care Team Providers Care Polygraph Examiner Name Role Phone VICKI ESPINAL MD, PSC, Unavailable Unavailable VICKI ESPINAL MD, PSC DE LEON ALL, DE LEON ALL Unavailable Unavailable [facility] Unavailable Unavailable AND REHA, [facility] Unavailable [...] Unavailable Unavailable [facility] Unavailable Unavailable [facility] LENORA MAT, LENORA MAT Unavailable Unavailable [place], [facility] Unavailable Unavailable DINESH ALONZO, Unavailable Unavailable DINESH ALONZO CASEY, [place] PEÑA Unavailable Unavailable Purpose Continuity of Care Document - 10-22-2011 through 2016 Problems Code Diagnosis DOS Provider Status [id number] SPONDYLOSIS 06-27-2015 VICKI ESPINAL W/O , PSC MYELOPATH/R ADICULOPATH Y LUMB RGN M5126 [facility] 06-27-2015 MIRIAM BROWN MD, 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 M5136 [facility] 06-27-2015 MIRIAM BROWN MD, PSC RAL DISC DEGEN LUMBAR REGION 7213 LUMBOSACRAL 01-20-2015 DINESH ALONZO SPONDYLOSIS WITHOUT MYELOPATHY 57188 DISPLCMT 01-20-2015 DINESH Meneses 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 96641 DEGEN 01-20-2015 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 7242 LUMBAGO 01-20-2015 DINESH ALONZO 35262 SPASM OF 12-16-2014 [facility], PSC 7821 RASH AND 06-01-2014 [place] OTHER MEDICAL NONSPECIFIC CLINIC, [facility] SKIN ERUPTION 96967 UNSPECIFIED 10-09-2013 [facility] SLEEP AND ARTHROPATHY REHA OTHER SPECIFIED SITES 7244 THORACIC/CATHERINE 10-09-2013 [facility] NEUR[facility]/RA DICULITIS UNSPEC V0481 NEED 04-28-2013 [facility]43 C VACCINATION &INOCULATIO N FLU 3670 HYPERMETROP 05-22-2012 [facility] 94337 REGULAR 05-22-2012 [facility] ASTIGMATISM [facility] 3674 PRESBYOPIA 05-22-2012 [facility] 90798 OTHER 05-22-2012 [facility] VITREOUS CTR [facility] OPACITIES 4019 UNSPECIFIED 11-30-2011 [facility] HYPERTENSIO N 7295 PAIN IN 11-30-2011 [facility] SOFT [facility] TISSUES OF LIMB 7820 DISTURBANCE 11-30-2011 [facility] SKIN [facility] SENSATION 7840 HEADACHE 11-30-2011 [facility] V5869 LONG-TERM 11-30-2011 [facility] (CURRENT) [facility] USE OF OTHER MEDICATIONS 7245 UNSPECIFIED 10-25-2011 [facility] Immunization Name Date Route CVX Reacti Commen Provid Is Given on t er Refuse d IIV3 RITE No VACC 2013 AID PRESER PHARM VATIVE #3943 FREE 0.5 ML DOSAGE IM USE Procedures Procedure DOS Code Location Performer Comment MRI 63135 DINESH DE LEON ALL SPINAL 5 [place]. [place] CANAL LUMBAR W/O CONTRAST MATERIAL INJECTION J1030 [address] METHYLPRE DNISOLONE ACETATE 40 MG NJX 07917 [facility] DX/THER [address] [place] [address] AGT PVRT FACET JT LMBR/SAC 3+ LEVEL INJECTION J2795 [address] ROPIVACAI NE HYDROCHLO RIDE 1 MG NJX 96362 [facility] DX/THER [address] [place] [address] AGT PVRT FACET JT LMBR/SAC 1 LEVEL NJX 13808 [facility] DX/THER 4 [place]AST EAST AGT PVRT FACET JT LMBR/SAC 2ND LEVEL MRI 29201 DINESH ALONZO CASEY SPINAL 3 S. [place] CANAL LUMBAR W/O CONTRAST MATERIAL IIV3 VACC 03167 [facility] PHARM PHARM PRESERVAT #3943 #3943 LUIS FREE 0.5 ML DOSAGE IM USE ADMINISTR G0008 [facility] PHARM PHARM INFLUENZA #3943 #3943 VIRUS VACCINE LUMB-SACR L0637 [facility]THOS 3 HOME INTERMEDIATE CARE [employer] INC CNTRL RIGD A&P PREFAB NJX 07923 [facility] RONNA II DX/THER 2 LTH SLEEP SAUL SBST AND REHA EPIDURAL/ SUBARACH LUMBAR/SA CRAL MODERATE 05622 [facility] RONNA II SEDATJ 2 LTH SLEEP SAUL SAME AND REHA PHYS/QHP 5/>YRS INIT 30 MIN FLUOR 57348 [facility] RONNA II NEEDLE/CA 2 LTH SLEEP SAUL TH AND REHA SPINE/PAR ASPINAL DX/THER ADDON MODERATE 33230 [facility] RONNA II SEDATJ 2 LTH SLEEP SAUL SAME AND REHA PHYS/QHP 5/>YRS INIT 30 MIN FLUOR 44286 [facility] RONNA II NEEDLE/CA 2 LTH SLEEP SAUL TH AND REHA SPINE/PAR ASPINAL DX/THER ADDON NJX 01067 [facility] RONNA II DX/THER 2 LTH SLEEP SAUL SBST AND REHA EPIDURAL/ SUBARACH LUMBAR/SA CRAL DRUG SCR G0434 [place] NOT 2 [place] [facility] RAPHIC; PSC ANY NUMBER PT ENC RADEX 84631 [facility] K[place]AR[place]U SPINE 2 LTH DI JACEK LUMBOSACR ORTHOPAE AL 2/3 VIEWS RADEX 10871 [place] [facility] SPINE 2 [place] LUMBOSACR CLINIC AL ONLY PSC BENDING 2/3 VIEWS Encounters Encounter Start End Date Code Location Performer Type Date OFFICE 64742 VICKI DUMONT CRI OUTPATIEN 5 5 MD KYLIE, T NEW 45 [facility] MINUTES CRITICAL MICHAEL & ACCESS 5 5 [facility] OFFICE 55935 [place] OUTPATIEN 5 5 MEDICAL T VISIT CLINIC, 15 PSC MINUTES CLINIC, [place] [facility] 5 5 [facility] OFFICE 12730 [facility] OUTPATIEN 4 4 MEDICAL T VISIT CLINIC, 15 [facility] MINUTES CLINIC, [place] 4 4 [facility], [facility] CLINIC, [place] 4 4 [facility], [facility] OFFICE 33982 [place] OUTPATIEN 4 4 MEDICAL T NEW 45 CLINIC, MINUTES [facility] - 4 4 [facility] OUTPATIEN T OFFICE 75896 ABEBA FRIEND II OUTPATIEN 4 4 LT SLEEP SAUL T VISIT AND REHA 15 MINUTES OFFICE 12668 ABEBA FRIEND II OUTPATIEN 3 3 LT SLEEP SAUL T VISIT AND REHA 15 MINUTES [facility] ACCESS 3 3 [facility] OFF[facility] 26003 ABEBA FRIEND II OUTPATIEN 3 3 LT SLEEP SAUL T VISIT AND REHA 25 MINUTES OFFICE 50217 ADRIANAA RONNA II OUTPATIEN 3 3 LTH SLEEP SAUL T VISIT AND REHA 25 MINUTES OFFICE 64219 ADRIANAA RONNA II OUTPATIEN 3 3 LTH SLEEP SAUL T VISIT AND REHA 25 MINUTES OFFICE 46293 ADRIANAA RONNA II OUTPATIEN 3 3 LTH SLEEP SAUL T VISIT AND REHA 15 MINUTES OFFICE 10106 ABEBA FRIEND II OUTPATIEN 3 3 LTH SLEEP ASUL T VISIT AND REHA 15 MINUTES OFFICE 37642 COMMONWEA RONNA II OUTPATIEN 3 3 LTH SLEEP SAUL T VISIT AND REHA 15 MINUTES OFFICE 61635 ABEBA RONNA II OUTPATIEN 2 2 LTH SLEEP SAUL T VISIT AND REHA 15 MINUTES OFFICE 92080 [facility] 2 [facility] ANT T VISIT [facility] 15 MINUTES OFFICE 11497 ABEBA FRIEND II OUTPATIEN 2 2 LTH SLEEP SAUL T VISIT AND REHA 10 MINUTES OFFICE 20669 ABEBA RONNA II OUTPATIEN 2 2 LT SLEEP SAUL T VISIT AND REHA 15 MINUTES OFFICE 68752 [facility] OUTPATIEN 2 2 [facility] T NEW 30 MINUTES [facility] - 2 2 [facility] OUTPATI[facility] T OFFICE 50002 [place] OUT[place]IEN 2 2 [facility] ANABELA T NEW 45 CLINIC MINUTES [facility] OFFICE 96109 [place] OUTPATIEN 2 2 [facility] ANABELA T NEW 45 [facility] MINUTES OFFICE 69011 ABEBA PAVON OUTPATIEN [address] [facility] DI JACEK T NEW 45 [place]TH[place] MINUTES OFFICE 28151 AQUILES REGAN OUTPATIEN 2 2 [place] T VIS[facility]INIC 10 [facility] MINUTES
--- OUTSIDE RECORDS SUMMARY | 2017-01-14 19:31 | External Medical Summary Rpt ---
Author Author , Organization [employer] Address Unknown Phone Unavailable Purpose Continuity of Care Document - 03-29-2016 through 2016 Immunization Name Date Route CVX Reacti Commen Provid Is Given on t er Refuse d PPV23 [place] [id number] No 2016 ical Inform ation - Source Unspec ified
--- NOTE | 2017-01-14 19:53 | Emergency Room Report ---
History of Present Illness Time Seen by 1927 Presenting Problem in Triage Pt arrived:Wheelchair Presenting Problem:PT STATES FALLING SATURDAY AND LAST NIGHT. STATES HIS LEG GIVES OUT. STATES RIGHT SHOULDER AND RIGHT HIP PAIN. 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 N Clinical Suspician of Infection? N Mental Status: 1 - Regular (Normal Baseline) Sepsis Risk:Possible Sepsis Risk Have you (or family members/close friends) recently traveled outside the [place]? N If Yes, where/when: Have you had exposure to infectious disease within the past month? N TB? Other? Specify: Source patient, RN notes reviewed, family, old records Exam Limitations no limitations Comment pt with injury to rt shoulder and rt hip with accidental fall last pm Cardiac Chest Pain Chest pain indicative of cardiac No Timing/Duration this evening Severity moderate ALLERGIES Coded Allergies: No Known Allergies (10/30/16) Home Medications Reported Medications AMITRIPTYLINE HCL (Amitriptyline Hydrochloride) 25 MG PO DAILY #90 Atorvastatin Calcium 40 MG PO DAILY #90 ASPIRIN (Aspirin 325MG) 325 MG PO DAILY Gabapentin (Gabapentin 800MG) 800 MG PO TID LISINOPRIL (Lisinopril) 10 MG PO DAILY History Medical History General CAD? No Angina: No TN: No Hypertension? Yes Hyperlipidemia? No CHF? No DVT? No PE? No COPD? No Asthma? No Anemia? No GERD? No Gastric ulcers? No GI Bleed? No Hernia? No Thyroid Problems? No Hypothyroidism? No CVA? Yes Seizures? No Diabetes? No Insulin Dependent: No Renal Insuffiency? No End Stage Renal Disease? No UTI? No Stones? No BPH? No GB Disease: No Nephritic Syndrome? No Asplenia? No Hepatitis? No Sickle Cell Disease? No Arthritis? Yes Migraines? No Cataracts? No Glaucoma? No MRSA? No HIV? No TB? No Anxiety? No Depression? No Cancer? No More? No Immunization Hx DT/Tetanus 5-10 YRS Surgical Hx Previous Surgery?N RIGHT HIP REPAIR RIGHT CARPAL TUNNEL SX Social History Smoking Hx Smoker: Current Every Day Smoker Tobacco: Yes Type Cigarettes Packs/day < 1 Pack Alcohol Alcohol: Yes Drugs none Review of Systems All Other Systems Reviewed and Negative Constitutional denies fever Eyes denies drainage ENT denies: ear pain, epistaxis, throat pain. Respiratory denies cough, denies shortness of breath, denies wheezing Cardiovascular denies chest pain, denies palpitations, denies syncope Gastrointestinal denies abdominal pain, denies diarrhea, denies vomiting Genitourinary denies: dysuria, frequency, hesitancy, hematuria. Musculoskeletal see HPI, denies back pain, joint pain, denies joint swelling, denies neck pain Skin denies rash Psychiatric/Neurological denies headache, denies seizure Physical Exam Vital Signs Vital Signs Date Time Temp Pulse Resp B/P Pulse O2 O2 Flow FiO2 Ox Delivery Rate 01/14 2031 98.0 89 18 148/101 97 01/14 192 98.0 96 20 120/85 98 - WBC >12,000 or <4,000 or 10% bands? 2 or more SIRS Criteria Met? B/P:148/101 MAP:96 Creatinine >2.0? UA output<0.5ml/kg/hr for 2 hrs? Platelet count >100,000? Lactate >2.0mmol/1? INR >1.2 or PTT > than 60 sec? Evidence of Organ Dysfunction? Provider documented clinical suspician of infection? N Sepsis Criteria Count: 2 Sepsis Risk: Possible Sepsis Risk General Appearance no apparent distress Eye Exam - bilateral eye PERRL, bilateral eye EOMI Ear, Nose, Throat normal ENT inspection Neck non-tender Respiratory Status No: respiratory distress. 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 No Results/Orders Orders Procedure Date/time Status DIET-NOTHING BY MOUTH 01/[address] EXT.LOWER-RT-W/O CONTRAST 01/[address] SCAN REQ 01/14 1954 Complete [id number] VIEWS 01/14 1929 Active HIP RT 2-3V W/PELVIS IF PERFOR 01/14 1929 Active XRAY/CT/US XRAY/CT/US 1 XRAY hip, shoulder XR interpretation by reviewed by me Xray Results no fracture seen, abnormal XRAY/CT/US [address] interpretation by discussed w/radiologist Time results known: 2040 CT Results no fracture seen, abnormal Departure Departure Time of Disposition 2035 Disposition DC Home or Self Care(routine) Clinical Impression Primary Impression: Sprain of right hip Qualifiers: Encounter type: initial encounter Qualified Code: S73.101A - Unspecified sprain of right hip, initial encounter Secondary Impressions: Sprain of shoulder, right Qualifiers: Encounter type: initial encounter Shoulder sprain type: unspecified sprain Qualified Code: S43.401A - Unspecified sprain of right shoulder joint, initial encounter Condition STABLE Referrals Francisca VARGAS,Laci Jarvis (Family) Patient Instructions DI for Hip Bursitis Additional Instructions use meds and see pcp for follow up Discharge Counseling Counseled pt/family regarding diagnosis, test results, medications/RX, follow up needs Prescriptions Current Visit Scripts Prednisone (Prednisone 20MG) 20 MG PO BID #10 TAB ED Critical Care Critical Care No at 2042
[2017-01-14] MEDS ORDERED: PREDNISONE 20MG20 MG PO (20:42)
[2017-01-14 21:00] VITALS: BP 133/82
--- NOTE | 2017-01-14 22:00 | RADIOLOGY REPORT PS360 ---
[id number] VIEWS Ordering Physician: Kate Espinosa MD Patient Age: 56 years: Male HISTORY: [id number] shoulder pain fell last Arthur and again yesterday history of stroke study. TECHNIQUE: 3 views right shoulder COMPARISON is made to previous left shoulder 01/30/2008 FINDINGS No acute fractures identified. Humeral head and neck reveal no fracture. There are some mild degenerative changes inferior glenohumeral joint with some early marginal osteophyte formation suggestive here. Some early subchondral cystic changes are seen at the superior base of humeral head & greater tuberosity, which may reflect impingement sequela but nonspecific The glenoid appears intact. Scapula and clavicle intact. Scant degenerative changes AC joint.. Bones well mineralized Suggestion mild soft tissue swelling likely overlying shoulder Right apex & right upper lung evans appear clear.. IMPRESSION: No fracture nor dislocation . Mild degenerative changes right shoulder inferior glenohumeral joint joint
--- NOTE | 2017-01-14 22:00 | RADIOLOGY REPORT PS360 ---
[id number] VIEWS Ordering Physician: Kate Espinosa MD Patient Age: 56 years: Male HISTORY: [id number] shoulder pain fell last Arthur and again yesterday history of stroke study. TECHNIQUE: 3 views right shoulder COMPARISON is made to previous left shoulder 01/30/2008 FINDINGS No acute fractures identified. Humeral head and neck reveal no fracture. There are some mild degenerative changes inferior glenohumeral joint with some early marginal osteophyte formation suggestive here. Some early subchondral cystic changes are seen at the superior base of humeral head & greater tuberosity, which may reflect impingement sequela but nonspecific The glenoid appears intact. Scapula and clavicle intact. Scant degenerative changes AC joint.. Bones well mineralized Suggestion mild soft tissue swelling likely overlying shoulder Right apex & right upper lung evans appear clear.. IMPRESSION: No fracture nor dislocation . Mild degenerative changes right shoulder inferior glenohumeral joint joint
--- NOTE | 2017-01-14 22:05 | RADIOLOGY REPORT PS360 ---
HIP RT 2-3V W/PELVIS IF PERFOR Ordering Physician: Kate Espinosa MD Patient Age: 56 years: Male HISTORY: [id number] Saturday and again yesterday right hip pain patient with prior strokes unsteady on feet TECHNIQUE: AP and frog-leg view right hip with AP pelvis. FINDINGS Advanced degenerative arthritic changes are seen at the right hip . Marked narrowing superior joint space with [id number] appearance here. Sclerosis and developing subchondral cystic changes about this narrowed arthritic joint- both the humeral head & roof of acetabulum. Marginal osteophytes about the joint most evident about the base of the right femoral head. No acute fractures identified. AP pelvis. Other than this severe arthritic changes at the right hip the remainder the pelvis appears intact radiographically SI joints intact left hip intact. Superior and inferior ramus intact. Moderately pronounced Degenerative changes lower lumbar spine degenerative noted: Narrowed disc changes & marginal osteophyte particularly evident at L5/S1 to the left; & at L4/5 on the right.. IMPRESSION: Advanced arthritic changes at the right hip as above. No acute fracture. Osseous pelvis intact. Degenerative changes lower L-spine noted
--- NOTE | 2017-01-14 22:05 | RADIOLOGY REPORT PS360 ---
HIP RT 2-3V W/PELVIS IF PERFOR Ordering Physician: Kate Espinosa MD Patient Age: 56 years: Male HISTORY: [id number] Saturday and again yesterday right hip pain patient with prior strokes unsteady on feet TECHNIQUE: AP and frog-leg view right hip with AP pelvis. FINDINGS Advanced degenerative arthritic changes are seen at the right hip . Marked narrowing superior joint space with [id number] appearance here. Sclerosis and developing subchondral cystic changes about this narrowed arthritic joint- both the humeral head & roof of acetabulum. Marginal osteophytes about the joint most evident about the base of the right femoral head. No acute fractures identified. AP pelvis. Other than this severe arthritic changes at the right hip the remainder the pelvis appears intact radiographically SI joints intact left hip intact. Superior and inferior ramus intact. Moderately pronounced Degenerative changes lower lumbar spine degenerative noted: Narrowed disc changes & marginal osteophyte particularly evident at L5/S1 to the left; & at L4/5 on the right.. IMPRESSION: Advanced arthritic changes at the right hip as above. No acute fracture. Osseous pelvis intact. Degenerative changes lower L-spine noted
--- NOTE | 2017-01-15 07:13 | RADIOLOGY REPORT PS360 ---
CT EXT.LOWER-RT-W/O CONTRAST 3-D volume reconstruction images included Ordering Physician: Kate Espinosa MD Patient Age: 56 years: Male HISTORY: RIGHT HIP PAIN, FELL YESTERDAY TECHNIQUE: Helical CT scanning performed through the right hip with sagittal & coronal reconstruction images performed. In addition 3-D volume rendering images with shading performed on independent workstation-... 77 CPT FINDINGS . No acute fracture involving the right femoral head or neck. No acute fracture at visualized right pelvis . Severe arthritic changes at the right hip . Marked superior joint space narrowing with [id number] appearance. Sclerosis and subchondral cystic changes about this narrowed superior right hip joint joint. Degenerative/Subchondral cysts are most evident at the anterior aspect of the acetabulum largest measuring ~10 mm size... Subchondral cystic changes also seen at the femoral head thickening towards its anterior base. Hypertrophic ridging is seen about the base of the femoral head as well as some mild hypertrophic lipping about the margins of acetabulum. There is proliferation bone, hypertrophic bone covering the region the fovea..- Yields a slight unusual pattern but reflect appears to be reflection of the hypertrophic bone related to the the arthritic changes most likely. There is also some hypertrophic changes ligament insertions upon the greater trochanter & and to lesser degree at the lesser trochanter as well. The right hemipelvis is included on this study with no acute fracture. . Superior and inferior ramus intact. Pubis intact. The right sacrum intact no insufficiency fracture here. There are sclerotic changes iliac margin SI joint reflecting degenerative change. SI joint remains patent Note Generous wall thickness in the bladder. Mild/Moderate enlarged Lobulated prostate indents the base the bladder. Warrants correlation with urinalysis PSA. IMPRESSION: No acute fracture right hip nor visualized right hemipelvis. Severe advanced arthritic changes right hip. Mild/Moderate enlarged lobulated appearing prostate indents the base the bladder. Mild bladder wall thickening. Warrants correlation urinalysis and PSA and possibly prostate evaluation
== END 2017-01-14 21:00 | disposition home or self-care (01) ==
LOC: ER 19:16
DX: S73.101A Unspecified sprain of right hip, initial encounter (principal); S43.401A Unspecified sprain of right shoulder joint, initial encounter; I10 Essential (primary) hypertension; Z72.0 Tobacco use; W19.XXXA Unspecified fall, initial encounter; Y92.009 Unspecified place in unspecified non-institutional (private) residence as the place of occurrence of the external cause

== ENCOUNTER → 2017-02-19 | Outpatient (CLI) | payer MEDICARE ==
[~2017-02-19] MED LIST changes: +AMITRIPTYLINE H25 MG PO; +ASPIRIN 325MG325 MG PO; +ATORVASTATIN 4040 MG PO; +ATORVASTATIN CA40 MG PO; +PREDNISONE 20MG20 MG PO; +VITAMIN D400 UNI1 PO
--- NOTE | 2017-02-19 11:23 | RADIOLOGY REPORT PS360 ---
LOWER LEG-LT COMPARISON: None HISTORY: Left lower leg pain TECHNIQUE: AP and lateral views FINDINGS: The tibia and fibula appear intact with no evidence of recent or old fracture. Soft tissues are normal. IMPRESSION: Negative left tibia and fibula
--- NOTE | 2017-02-19 11:25 | RADIOLOGY REPORT PS360 ---
ANKLE-LT-3 VIEWS COMPARISON: None HISTORY: Left ankle pain TECHNIQUE: AP lateral and oblique views FINDINGS: The lateral malleolus appears intact. There is a fragment of bone with smooth mildly sclerotic borders just inferior to the medial malleolus probably due to an old unfused chip fracture. There is no significant soft tissue swelling. Ankle mortise appears normal. The small spur of the calcaneus at the insertion of plantar tendon. IMPRESSION: Probable posttraumatic change of the medial malleolus doubt acute fracture
== END ==
LOC: RAD 10:54
DX: M79.605 Pain in left leg (principal); M25.572 Pain in left ankle and joints of left foot

== ENCOUNTER → 2017-03-25 | Outpatient (CLI) | payer MEDICARE ==
--- NOTE | 2017-03-25 11:59 | RADIOLOGY REPORT PS360 ---
[id number] VIEWS HISTORY: RT SHOULDER PAIN Patient Age: 56 years: Male Ordering Physician: WILL GOSS TECHNIQUE: 3 views right shoulder COMPARISON :COMPARISON is made to previous right shoulder study from January 2017 FINDINGS No acute fracture nor dislocation. There is some irregularity minor subchondral cyst or erosive changes at the cap of the greater tuberosity which reflect degenerative changes and likely sequela of impingement over time. Also note mild degenerative changes at the glenohumeral joint. Mild hypertrophic ridging at the inferior aspect of this joint noted mainly from the glenoid. Mild degenerative changes at the AC joint. IMPRESSION: No change since January 2017. . No fracture nor dislocation.. Developing Degenerative changes.
== END ==
LOC: RAD 08:02
DX: M25.511 Pain in right shoulder (principal)